=== PATIENT | female | born 2000 ===

== ENCOUNTER 2021-07-21 19:11 | Emergency (ER) | payer MEDICAID ==
[~2021-07-21] VITALS: Ht 162.6 cm; Wt 114.3 kg
[2021-07-21 22:28] VITALS: BP 137/79
--- NOTE | 2021-07-21 22:47 | NUR ---
PT C/O COUGH/SOB/FEVER SINCE LAST NIGHT, NO COVID VACCINE. PT A&O, VSS, NADN.
--- NOTE | 2021-07-21 23:11 | NUR ---
pt educated on dc instructions, verbalized undertsanding. ambulatory to dc desk with steady gait.
== END 2021-07-21 23:15 | disposition home or self-care (01) ==
LOC: ED 23:09
DX: J45.31 Mild persistent asthma with (acute) exacerbation (principal); Z20.822 Contact with and (suspected) exposure to COVID-19; J06.9 Acute upper respiratory infection, unspecified; R00.0 Tachycardia, unspecified
CPT/HCPCS: 71045; 99284; J7512; U0003; U0005